=== PATIENT | female | born 1990 | race Caucasian/White ===

== ENCOUNTER 2024-12-30 21:34 | Emergency (ER) | payer OTHER, MEDICAID ==
[~2024-12-30] VITALS: Ht 162.6 cm; Wt 64.0 kg
[2024-12-30 22:01] VITALS: O2SAT 100
[2024-12-30] MEDS: IBUPROFEN 600MG TABLET PO ONE (23:01)
[2024-12-30] MEDS ORDERED: IBUP-2028 MT (23:54)
[2024-12-31 00:08] VITALS: BP 100/47; PULSE 67; RESP 20; TEMP 36.7; O2SAT 100
== END 2024-12-31 00:13 | disposition home or self-care (01) ==
LOC: ER 21:34
DX: S39.012A Strain of muscle, fascia and tendon of lower back, initial encounter (principal); V43.52XA Car driver injured in collision with other type car in traffic accident, initial encounter; Y93.89 Activity, other specified; Y92.89 Other specified places as the place of occurrence of the external cause; Y99.8 Other external cause status
CPT/HCPCS: 72100; 81025; 99283